=== PATIENT | male | born 1965 | race Caucasian/White ===

== ENCOUNTER → 2019-09-16 | Emergency (ER) | payer OTHER ==
[~2019-09-16] VITALS: Ht 177.8 cm; Wt 77.1 kg
[~2019-09-16] MED LIST: IOHEXOL 300 MG/ML 100ML BOTTLE IJ ONE; MORPHINE SULF INJ 2 MG/ML SYRINGE 1ML IV ONE; ONDANSETRON HCL 4 MG/2 ML VIAL IV ONE; SODIUM CHLORIDE 0.9% 1,000 ML IV ONE; SODIUM CHLORIDE 0.9% 500 ML IV ONE; TETANUS-DIPTH-ACEL PERTUSSIS 0.5ML SYR Tdap IM ONE; cefTRIAXone 1GM/50ML D5W 50 ML IV ONE
[2019-09-16 15:50] LABS: Basophils # (auto) 0 10 ^3/uL (0-0.2); Basophils % (auto) 0.3 % (0.0-2.0); Eosinophils # (auto) 0 10 ^3/uL (0-0.8); Lymphocytes # (auto) 1.3 10 ^3/uL (0.4-5.4); Monocytes # (auto) 0.9 10 ^3/uL (0-1.3)
[2019-09-16 15:52] LABS: Eosinophils % (auto) 0.2 % (0.0-7.0); Hematocrit 52.5 % (41.0-53.0); Hemoglobin 17.6 g/dL (13.5-17.5); Lymphocytes % (auto) 9.4 % (10.0-50.0); Mean Corpuscular Hgb Conc. 33.5 g/dL (32.0-36.0); Mean Corpuscular Volume 92.4 fL (80.0-100.0); Monocytes % (auto) 6.4 % (0.0-12.0); Neutrophils # (auto) 11.5 10 ^3/uL (1.6-8.6); Neutrophils % (auto) 83.7 % (37.0-80.0); Nucleated Red Blood Cells % 0.2 %; Platelet Count (auto) 182 10^3/uL (140-450); Red Blood Cells 5.68 10^6/uL (4.5-5.90); Red Cell Distribution Width 13.7 % (11.8-14.3); White Blood Cell 13.8 10^3/uL (4.4-10.8)
[2019-09-16 16:13] LABS: Albumin 4.1 g/dL (3.4-5.0); BUN/Creatinine Ratio 13.8; Calcium 8.7 mg/dL (8.5-10.1); Potassium 3.8 mmol/L (3.5-5.1)
[2019-09-16 16:24] LABS: Bilirubin, Total 0.8 mg/dL (0.2-1.0); Total Protein 7.5 g/dL (6.4-8.2)
[2019-09-16 17:31] VITALS: BP 110/57
== END | disposition short-term general hospital (02) ==
LOC: ER 15:10
DX: S22.42XA Multiple fractures of ribs, left side, initial encounter for closed fracture (principal); S43.402A Unspecified sprain of left shoulder joint, initial encounter; S13.9XXA Sprain of joints and ligaments of unspecified parts of neck, initial encounter; J94.2 Hemothorax; V43.52XA Car driver injured in collision with other type car in traffic accident, initial encounter; Y93.89 Activity, other specified; Y92.488 Other paved roadways as the place of occurrence of the external cause; Y99.8 Other external cause status
CPT/HCPCS: 36415; 70450; 71260; 72125; 72130; 72132; 73030; 74177; 80053; 85025; 90471; 90715; 93005; 96365; 96375; 99285; J0696; J2270; J2405; J7030; Q9967

== ENCOUNTER → 2019-09-20 | Emergency (ER) | payer OTHER ==
[~2019-09-20] VITALS: Ht 177.8 cm; Wt 77.1 kg
[~2019-09-20] MED LIST changes: +HYDROmorphone HCL 2 MG/ML VL IV ONE; +HYDROmorphone HCL 2 MG/ML VL ONE; -IOHEXOL 300 MG/ML 100ML BOTTLE IJ ONE; +IOHEXOL 350 MG/ML 100ML IJ ONE; -MORPHINE SULF INJ 2 MG/ML SYRINGE 1ML IV ONE; +MORPHINE SULFATE 4 MG/ML SYR/VIAL IV ONE; +PROMETHAZINE HCL 25 MG/ML 1ML IV ONE; -SODIUM CHLORIDE 0.9% 500 ML IV ONE; -TETANUS-DIPTH-ACEL PERTUSSIS 0.5ML SYR Tdap IM ONE; -cefTRIAXone 1GM/50ML D5W 50 ML IV ONE
[2019-09-20 10:34] LABS: Basophils # (auto) 0 10 ^3/uL (0-0.2); Basophils % (auto) 0.4 % (0.0-2.0); Eosinophils # (auto) 0 10 ^3/uL (0-0.8); Hematocrit 48.1 % (41.0-53.0); Hemoglobin 16.1 g/dL (13.5-17.5); Lymphocytes % (auto) 8.4 % (10.0-50.0); Mean Corpuscular Hemoglobin 30.9 pg (28.0-32.0); Mean Corpuscular Hgb Conc. 33.5 g/dL (32.0-36.0); Mean Corpuscular Volume 92.3 fL (80.0-100.0); Monocytes % (auto) 8.7 % (0.0-12.0); Neutrophils # (auto) 9.8 10 ^3/uL (1.6-8.6); Neutrophils % (auto) 82.5 % (37.0-80.0); Nucleated Red Blood Cells % 0.2 %; Platelet Count (auto) 167 10^3/uL (140-450); Red Blood Cells 5.22 10^6/uL (4.5-5.90); Red Cell Distribution Width 13.6 % (11.8-14.3); White Blood Cell 11.9 10^3/uL (4.4-10.8)
[2019-09-20 11:11] LABS: INR 0.99 (0.9-1.15); Partial Thromboplastin Time 23.3 sec (23.0-31.2)
[2019-09-20 14:55] LABS: Urine Bacteria NONE SEEN /hpf (None Seen); Urine Blood 1+ /uL (Negative); Urine Mucus FEW (None Seen); Urine WBC <1 /hpf (0 - 3)
[2019-09-20 15:00] VITALS: BP 131/82
[2019-09-20 15:04] LABS: Urine Specific Gravity > 1.050 (1.001-1.035)
[2019-09-20 15:14] LABS: Calcium 7.7 mg/dL (8.5-10.1); Potassium 4.3 mmol/L (3.5-5.1)
[2019-09-20 15:17] LABS: BUN/Creatinine Ratio 21.9; Bilirubin, Total 0.7 mg/dL (0.2-1.0)
== END | disposition home or self-care (01) ==
LOC: ER 09:57
DX: S22.42XA Multiple fractures of ribs, left side, initial encounter for closed fracture (principal); R00.0 Tachycardia, unspecified; J93.9 Pneumothorax, unspecified; J94.2 Hemothorax; V23.4XXA Motorcycle driver injured in collision with car, pick-up truck or van in traffic accident, initial encounter; Y93.89 Activity, other specified; Y92.488 Other paved roadways as the place of occurrence of the external cause; Y99.8 Other external cause status
CPT/HCPCS: 32551; 36415; 71045; 71275; 80053; 81001; 84484; 85025; 85610; 85730; 96361; 96374; 96375; 96376; 99285; J1170; J2270; J2405; J2550; Q9967